=== PATIENT | male | born 2000 | race Two or more races ===

== ENCOUNTER 2023-12-13 13:23 | Emergency (ER) | payer MEDICAID, OTHER ==
[~2023-12-13] VITALS: Ht 193 cm; Wt 103.0 kg
[2023-12-13 15:38] VITALS: BP 119/78; PULSE 68; RESP 12; TEMP 98.6; O2SAT 98
[2023-12-13] MEDS ORDERED: ZOFR4T PO (16:08)
[2023-12-13] MEDS ORDERED: LOPE-20 PO (16:08)
[2023-12-13] MEDS: ONDANSETRON HCL 4 MG/2 ML VIAL IM ONE (16:40)
[2023-12-13] MEDS: DIPHENOXYLATE W/ATROPINE 2.5 MG TAB PO ONE (16:40)
== END 2023-12-13 16:49 | disposition home or self-care (01) ==
LOC: ER 13:23
DX: K52.9 Noninfective gastroenteritis and colitis, unspecified (principal)
CPT/HCPCS: 96372; 99283; J2405